=== PATIENT | male | born 1960 | race Caucasian/White ===

== ENCOUNTER 2016-11-16 04:57 | Emergency (ER) | payer OTHER, MEDICARE ==
[~2016-11-16] VITALS: Ht 182.9 cm; Wt 85.0 kg
[~2016-11-16 04:57] MED LIST: AMOX500T PO
[2016-11-16 04:58] VITALS: BP 134/79; PULSE 87; RESP 18; TEMP 98.6; O2SAT 95
[2016-11-16] MEDS ORDERED: HYDR50TA94 PO (05:33)
[2016-11-16] MEDS ORDERED: MUPI2OIN TOPICAL (05:33)
--- NOTE | 2016-11-16 05:33 | PD ---
HPI Chief Complaint: Skin Problem Time Seen by Provider: 05:16 Travel History International Travel<30 days: No Contact w/Intl Traveler<30days: No Traveled to known affect area: No History of Present Illness HPI 56 year-old woman presents emergency department for rash on his arms and legs ongoing for about a week or 2. He describes pruritic scaling scabbing rash an ulceration on his legs and arms. States she doesn't know what it is from. He has a bizarre tremor and a little bit of aphasia makes it difficult for him to speak. He appears homeless but states that he lives in a house with a couple other people. He is not clear if they have skin lesions or not. He perseverates on the fact that there was a prostitute in the house also and one so we can do blood tests. Is not clear what for. Apparently in the past he asked for hepatitis C tests according to previous records. In any case he denies other associated symptoms. Denies history of previous skin rashes. History Past Medical History Medical History: Denies Significant Hx Social History Alcohol Use: No Tobacco Use: Yes (1 PPD) Allergies-Medications (Allergen,Severity, Reaction): Coded Allergies: No Known Allergies (Verified , 11/16/16) Reported Meds & Prescriptions Reported Meds & Active Scripts Active Amoxil (Amoxicillin) 500 Mg Cap 2 Tab PO Q8HR 10 Days Review of Systems ROS Limitations: Clinical Condition Physical Exam Narrative GENERAL: 48-year-old man, looks well, little bit disheveled bizarre. SKIN: Focused skin assessment warm/dry. He is an ulcerated skin rash on his left arm that's about 4 x 8 cm with some gamboa crusting scabs on the ulcerated area. There is no surrounding erythema. There is not particularly tender. He has some more superficial ulcerations are scaled over on the arms and legs that are smaller. HEAD: Atraumatic. Normocephalic. EYES: Pupils equal and round. No scleral icterus. No injection or drainage. ENT: No nasal bleeding or discharge. Mucous membranes pink and moist. No rash or lesions in the mouth. NECK: Trachea midline. No JVD. CARDIOVASCULAR: Regular rate and rhythm. No murmur appreciated. RESPIRATORY: No accessory muscle use. Clear to auscultation. Breath sounds equal bilaterally. GASTROINTESTINAL: Abdomen soft, non-tender, nondistended. Hepatic and splenic margins not palpable. MUSCULOSKELETAL: No obvious deformities. NEUROLOGICAL: Awake and alert. No obvious cranial nerve deficits. Motor grossly within normal limits. He appears to have some trouble word finding. He looks otherwise well. Data Data Last Documented VS Vital Signs Date Time Temp Pulse Resp B/P Pulse Ox O2 Delivery O2 Flow Rate FiO2 11/16/16 04:58 98.6 87 18 134/79 95 Room Air Orders Wound Care (11/16/16 05:27) Wound Culture And Gram Stain (11/16/16 05:27) MDM Medical Decision Making Medical Screen Exam Complete: Yes Emergency Medical Condition: Yes Differential Diagnosis Rash, impetigo, skin cancer, primary dermatosis Narrative Course Medical decision making a 48-year-old man of rash, seems most consistent with impetigo. Will recommend mupirocin. Patient's a little bit unusual. I don't see clear reference to a similar presentation on his previous visits. Nonetheless he doesn't look acutely destabilize. He has no other complaints. We'll treat him for the rash. Diagnosis Primary Impression: Impetigo Additional Instructions: Apply mupirocin as prescribed. Use Atarax if needed for itching. Follow-up with your primary doctor in 2-4 days. Return to the emergency department for any new or worsening symptoms. Med/Other Pt SpecificInfo: Prescription(s) given Scripts Mupirocin Topical 2 % Oint1 Applic TOPICAL BID #22 GM Ref 0 Prov:Kennedy Artis MD 11/16/16 Hydroxyzine HCl 50 Mg Tab50 Mg PO TID PRN (ITCHING) #15 TAB Ref 0 Prov:Kennedy Artis MD 11/16/16 Disposition: 01 DISCHARGE HOME Condition: Stable Kennedy Artis MD Nov 16, 2016 05:33
== END 2016-11-16 06:12 | disposition home or self-care (01) ==
LOC: NEPC 04:57
DX: L01.00 Impetigo, unspecified (principal); B95.0 Streptococcus, group A, as the cause of diseases classified elsewhere; B95.62 Methicillin resistant Staphylococcus aureus infection as the cause of diseases classified elsewhere; R25.1 Tremor, unspecified; R47.01 Aphasia; F17.200 Nicotine dependence, unspecified, uncomplicated
CPT/HCPCS: 86403; 87070; 87186; 99283